=== PATIENT | male | born 1980 | race Caucasian/White ===

== ENCOUNTER 2020-10-30 13:52 | Emergency (ER) | payer BC, OTHER ==
[~2020-10-30] VITALS: Ht 162.6 cm; Wt 70.3 kg
[2020-10-30] MEDS ORDERED: OFLOXACIN5 ML OP (14:02)
[2020-10-30] MEDS ORDERED: TETRACAINE HCL 0.5% OPTH SOLN 4 ML BTL OP ONE (14:15)
[2020-10-30] MEDS ORDERED: FLUORESCEIN SOD(OPTH) 1 MG STRP OP ONE (14:15)
== END 2020-10-30 14:23 | disposition home or self-care (01) ==
LOC: ER 14:05
DX: H10.9 Unspecified conjunctivitis (principal)
CPT/HCPCS: 99283